=== PATIENT | male | born 1990 | race Caucasian/White ===

== ENCOUNTER 2020-03-02 01:35 | Emergency (ER) | payer OTHER, SELFPAY ==
[~2020-03-02] VITALS: Ht 180.3 cm; Wt 145.1 kg
[2020-03-02 01:37] VITALS: Ht 180.3 cm; Wt 145.1 kg
[2020-03-02 03:47] VITALS: BP 152/109
== END 2020-03-02 03:48 | disposition home or self-care (01) ==
LOC: ED 01:35
DX: R50.9 Fever, unspecified (principal); I10 Essential (primary) hypertension; J45.909 Unspecified asthma, uncomplicated; F17.210 Nicotine dependence, cigarettes, uncomplicated; Z20.828 Contact with and (suspected) exposure to other viral communicable diseases
CPT/HCPCS: J8597; Q0092; U0003-CS